=== PATIENT | female | born 1945 | race Caucasian/White ===

== ENCOUNTER 2022-01-08 05:40 | Outpatient (CLI) | payer MEDICARE ==
[~2022-01-08] VITALS: Ht 160 cm; Wt 75.9 kg
[~2022-01-08 05:40] MED LIST: ALEN70TA47 PO; CPR500T PO; LISI1TAB10 PO; METR500T PO; SOLI5TAB4 PO
[2022-01-08] MEDS ORDERED: OMEP40CA6 PO (11:35)
[2022-01-08] MEDS ORDERED: ROSU10TA28 PO (11:35)
[2022-01-08] MEDS ORDERED: LISI1TAB48 PO (11:35)
[2022-01-08] MEDS ORDERED: COLE625T14 PO (11:35)
[2022-01-08] MEDS ORDERED: SOLI5TAB7 PO (11:35)
[2022-01-08] MEDS ORDERED: LEVO25TA5 PO (11:36)
== END 2022-01-08 11:40 | disposition home or self-care (01) ==
LOC: PREOP 05:40
PROVIDERS: ATTEND Surgery
DX: Z01.818 Encounter for other preprocedural examination (principal)

== ENCOUNTER 2022-01-20 07:39 | Day surgery (SDC) | payer MEDICARE ==
[~2022-01-20] VITALS: Ht 160 cm; Wt 75.9 kg
[~2022-01-20 07:39] MED LIST changes: +COLE625T14 PO; +LEVO25TA5 PO; +LISI1TAB48 PO; +OMEP40CA6 PO; +ROSU10TA28 PO; +SOLI5TAB7 PO
[2022-01-20 08:05] VITALS: BP 134/63
[2022-01-20] MEDS ORDERED: LACTATED RINGERS 1,000 ML IV STA (08:08)
[2022-01-20] MEDS ORDERED: LACTATED RINGERS 1,000 ML IV ONE (08:13)
[2022-01-20] MEDS ORDERED: PROPOFOL INJECTION 50 ML IV ONE (09:04)
[2022-01-20 09:55] VITALS: BP 133/76
--- NOTE | 2022-01-20 09:59 | Progress Note-Post Operative ---
Post-Operative Progess Note Surgeon (s)/Arm Maker (s) Surgeon FLORIDALMA PIZARRO DO Arm Maker: Pacheco Phillipsbaljinder, MSIII Pre-Operative Diagnosis +cologuard Post-Operative Diagnosis Polyps diverticula int hemorrhoids Procedure & Operative Findings Date of Procedure 01/20/22 Procedure Performed/Findings Colonoscopy with snare polypectomy PROCEDURE NOTE: After informed consent was obtained, the patient was brought to the endoscopy suite, placed in bed in left lateral decubitus position. She was administered IV sedation by the DOCTOR OF CHIROPRACTIC who then monitored her vitals the entire time, heart rate, blood pressure and pulse ox and the scope was inserted and pushed toward the cecum. In the transverse colon found a polyp and removed it with snare polypectomy. She had a very twisty colon and had to put her on her back to get the colonoscopy to the cecum. Had pushed to about 160 cm, but only got to transverse and then on her back with pressure able to finally push into the cecum. Able to remove some of the loop and then only in 100cm. Took a picture of appendiceal orifice and noted the ileocecal valve. Just outside the cecal cap found 2 polyps tried to remove with snare polypectomy; only able to get one. Then slowly withdrew the scope insufflating to look circumferentially at the ojeda starting up the ascending colon to the hepatic flexure, then down the transverse colon to the splenic flexure and into the descending colon. Found another polyp here, took a picture and removed it with the snare. She had multiple large diverticula throughout descending colon and the sigmoid. Continued down into the sigmoid, then into the rectal vault and retroflexed the scope. Took picture of the internal hemorrhoids. The patient tolerated the procedure. She was recovered in endoscopy suite. Recommended for repeat colonoscopy in 3 years. Anesthesia Type IV sedation by DOCTOR OF CHIROPRACTIC Estimated Blood Loss Estimated blood loss (mL): scant Specimens/Packing Specimens Removed transverse colon polyp cecal polyp desc colon polyp FLORIDALMA PIZARRO DO Jan 20, 2022 09:59
[2022-01-20 10:00] VITALS: BP_SYST 133; BP_SYST 136; BP_DIAS 60; BP_DIAS 66
--- NOTE | 2022-01-20 10:00 | Endoscopy Discharge Instruct ---
Endo Procedure/Findings Findings 1.: Polyp 2.: Diverticulosis 3.: Internal Hemorrhoids Discharge Instructions - Activity: You might feel a little sleepy until tomorrow. This is due to the medicine you received to relax you. Until tomorrow, you should: NOT drive a car, operate machinery or power tools. NOT drink any alcoholic beverages. NOT make any important decisions or sign importortant papers. Do not return to work until tomorrow, unless otherwise instructed. Resume previous activities tomorrow. Diet: Start by taking liquids. If you tolerate liquids, advance to solid food. 1.: Colonscopy in 3 years Notify Physician - If you experience excessive bleeding, unusual abdominal pain, fever, or chest pain, contact your doctor immediately. FLORIDALMA PIZARRO DO Jan 20, 2022 10:00
[2022-01-20 10:20] VITALS: BP 136/60
--- NOTE | 2022-01-20 11:35 | Anesthesia-General Post-Op ---
MAC Patient Condition Mental Status/LOC: Same as Preop Cardiovascular: Satisfactory Nausea/Vomiting: Absent Respiratory: Satisfactory Pain: Controlled Complications: Absent Post Op Complications Complications None Follow Up Care/Instructions Patient Instructions None needed. Anesthesiology Discharge Order Discharge Order Patient is doing well, no complaints, stable vital signs, no apparent adverse anesthesia problems. No complications reported per nursing. GANESH WOLF CRNA Jan 20, 2022 11:35
== END 2022-01-20 10:30 | disposition home or self-care (01) ==
LOC: ENDO 07:39
PROVIDERS: ATTEND Surgery
DX: D12.3 Benign neoplasm of transverse colon (principal); D12.0 Benign neoplasm of cecum; K63.5 Polyp of colon; K57.30 Diverticulosis of large intestine without perforation or abscess without bleeding; K64.8 Other hemorrhoids; Z87.891 Personal history of nicotine dependence; E66.9 Obesity, unspecified; Z68.29 Body mass index [BMI] 29.0-29.9, adult